=== PATIENT | female | born 1940 | race Caucasian/White ===

== ENCOUNTER 2020-05-09 22:53 | Inpatient (IN) | payer MEDICARE ==
[2020-05-09 23:22] LABS: Hemoglobin 15.3 g/dL (12.0-16.0); Mean Corpuscular HGB CONC 33.7 g/dL (32.0-36.0); Mean Corpuscular Hemoglobin 29.9 pg (27.0-31.0); Mean Corpuscular Volume 88.8 fL (78.0-98.0); Mean Platelet Volume 8.5 fL (7.4-10.4); Platelet Count 256 thou/uL (130-400); RBC Distribution Width 12.7 % (11.5-14.5); Red Blood Cell (RBC) Count 5.12 mill/uL (4.20-5.40); White Blood Cell (WBC) Count 8.5 thou/uL (4.8-10.8)
--- NOTE | 2020-05-09 23:29 | RAD ---
XR Chest 1 View Portable HISTORY: Syncope COMPARISON: 01/15/2016 FINDINGS: The heart size is normal. The aorta is tortuous. The lungs are well expanded without focal areas of consolidation, pneumothorax or pleural effusions. IMPRESSION: No radiographic evidence of acute cardiopulmonary process.
--- NOTE | 2020-05-09 23:31 | CT ---
CT BRAIN WITHOUT CONTRAST: HISTORY:Syncope COMPARISON:None FINDINGS: There are foci of decreased attenuation in the periventricular white matter, consistent with chronic small vessel ischemic disease. There are changes of cortical atrophy. No evidence of acute infarct, hemorrhage, midline shift or abnormal extra-axial fluid collections is seen. The ventricular size is appropriate and the basilar cisterns are patent. The bony calvarium is intact. The visualized paranasal sinuses and mastoid air cells are well aerated. IMPRESSION: No CT evidence of acute intracranial process.
[2020-05-09 23:39] LABS: Band 4 % (5-11); Eosinophils 5 % (0-10); Lymphocytes 28 % (21-51); MDiff Complete? YES; Monocytes 6 % (0-10); Neutrophil 41 % (42-75); Platelet Morphology Comment Appears Adequate; Polychromasia SLIGHT = 2-3 cells (100X) (0-2/hpf); Reactive Lymphocytes 16 % (0-10)
[2020-05-09 23:49] LABS: ALT (SGPT) 76 U/L (8-55); AST (SGOT) 59 U/L (5-34); Albumin 3.7 g/dL (3.4-4.8); Alcohol Less than 10 mg/dL (Less than 10); Alkaline Phosphatase 104 U/L (40-110); Anion Gap 19 mmol/L (10-20); BUN (Urea Nitrogen) 20 mg/dL (9.8-20.1); Bilirubin, Total 0.6 mg/dL (0.2-1.2); Calc. Creatinine Clearance 0 mL/min (70-130); Calcium 9.3 mg/dL (7.8-10.44); Carbon Dioxide 27 mmol/L (23-31); Chloride 91 mmol/L (98-107); Globulin 3.3 g/dL (2.4-3.5); Glucose 129 mg/dL (83-110); Sodium 134 mmol/L (136-145)
[2020-05-09] MEDS ORDERED: Aspirin 325 MG TAB ONE (23:59)
[2020-05-09] MEDS ORDERED: Potassium Chloride 20 MEQ TAB ONE (23:59)
[2020-05-09] MEDS ORDERED: hydrALAZINE 20 MG/ML VIAL ONE (23:59)
[2020-05-10] MEDS ORDERED: Aspirin Chewable 81 MG TAB ONE (00:14)
[2020-05-10] MEDS ORDERED: Metoprolol Tartrate 5 MG/5 ML VIAL ONE (00:37)
[2020-05-10 02:23] VITALS: BMI 26.6
--- NOTE | 2020-05-10 02:56 | PDOC.HHP ---
Hospitalist HPI - History of Present Illness Syncope History of Present Illness: This is a 79-year-old female patient with a history of cholecystitis who presents with a fainting spell earlier today. She was brought in by her daughter. Patient's daughter notes that earlier today the patient was trying to brush her teeth while she was standing behind her. After a while she noticed that she becomes unresponsive with his eyes rolled upwards and general stiffening of her whole body including clawlike posturing of her hands. She did not fall to the ground due to support from her daughter. She activated EMS. Incident lasted for about 2 minutes for which the patient has no memory. Daughter notes that patient had fallen down a couple of weeks ago before this event in an apparent syncopal event. She also notes significant sundowning with confusion and hallucination in the early evenings. She also has issues with memory however no formal diagnosis of dementia has been made. On arrival patient was noted to be feeling a bit confused. Blood pressure was 177/103, respiratory rate 18, pulse 84, saturating 94 on room air. CBC was generally unremarkable, she had mild hyponatremia of 134, potassium of 3.0, creatinine 1.37 with no baseline on file troponin 0 0.073. AST slightly elevated at [address] scan of the head revealed no acute intracranial events chest x-ray also showed no acute cardiopulmonary processes. She was started on Lopressor for blood pressure, aspirin, potassium chloride, hydralazine and also received a liter of normal saline. Hospitalist team was consulted to admit. Hospitalist ROS - Review of Systems Constitutional: denies: fever, chills, sweats, weakness Respiratory: denies: cough, shortness of breath, hemoptysis, SOB with excertion Cardiovascular: denies: chest pain, palpitations, paroxysmal noc. dyspnea Genitourinary: denies: dysuria, frequency, incontinence Musculoskeletal: denies: neck pain, shoulder pain, arm pain Neurological: denies: weakness, numbness, incoordination, change in speech All other systems reviewed; all pertinent +/- noted in HPI/Subj - Medication Medications: Medications: Can refer to ambulatory list. Allergies: No known drug allergies Hospitalist History - Past Medical History Other Medical History: Cholecystitis - Past Surgical History Other Surgical History: Neck surgery, cholecystectomy - Family History Family History: reports: no pertinent history - Social History Smoking Status: Current every day smoker Alcohol: reports: Occassional Living Situation: With Family Activity level: uses cane/walker - Exam General Appearance: awake alert Eye: PERRL, anicteric sclera ENT: normocephalic atraumatic Neck: supple, symmetric, no JVD Heart: RRR, no murmur, no gallops, no rubs, normal peripheral pulses Respiratory: CTAB, no wheezes, no rales, no ronchi, normal chest expansion Gastrointestinal: soft, non-tender, non-distended, normal bowel sounds Extremities: no cyanosis, no clubbing, no edema Neurological: cranial nerve grossly intact, no focal deficits Psychiatric: normal affect, A&O x 3 Hospitalist Results - Labs Result Diagrams: 05/10/20 04:20 05/10/20 04:20 Lab results: WBC 8.5 thou/uL (4.8-10.8) 05/09/20 23:13 Hgb 15.3 g/dL (12.0-16.0) 05/09/20 23:13 Hct 45.5 % (36.0-47.0) 05/09/20 23:13 MCV 88.8 fL (78.0-98.0) 05/09/20 23:13 Plt Count 256 thou/uL (130-400) 05/09/20 23:13 Band Neuts % (Manual) 4 % (5-11) L 05/09/20 23:13 Sodium 134 mmol/L (136-145) L 05/09/20 23:13 Potassium 3.0 mmol/L (3.5-5.1) L 05/09/20 23:13 Chloride 91 mmol/L (98-107) L 05/09/20 23:13 Carbon Dioxide 27 mmol/L (23-31) 05/09/20 23:13 BUN 20 mg/dL (9.8-20.1) 05/09/20 23:13 Creatinine 1.37 mg/dL (0.6-1.1) H 05/09/20 23:13 Glucose 129 mg/dL (83-110) H 05/09/20 23:13 Calcium 9.3 mg/dL (7.8-10.44) 05/09/20 23:13 Total Bilirubin 0.6 mg/dL (0.2-1.2) 05/09/20 23:13 AST 59 U/L (5-34) H 05/09/20 23:13 ALT 76 U/L (8-55) H 05/09/20 23:13 Alkaline Phosphatase 104 U/L (40-110) 05/09/20 23:13 CK-MB (CK-2) 2.0 ng/mL (0-6.6) 05/09/20 23:13 Troponin I 0.073 ng/mL (< 0.028) H 05/09/20 23:13 Serum Total Protein 7.0 g/dL (6.0-8.3) 05/09/20 23:13 Albumin 3.7 g/dL (3.4-4.8) 05/09/20 23:13 Hospitalist H&P A/P - Plan Plan: There is a 79-year-old male patient with no significant past medical history presenting with possible syncope seizure activity. Syncope We will admit monitor on telemetry. Fall precautions Orthostatic vitals Echocardiogram in a.m. PT eval in the morning. Hypertensive emergency Systolic blood pressure above 200 slightly elevated troponin BP improved with as needed metoprolol and hydralazine We will start amlodipine Medications Consider nicardipine drip if BP remains sustained. Elevated troponin Initial troponin 0 0.073 Received aspirin We will trend Consider cardiology consult if trends. Possible seizure attack. We will monitorseizure precautions Possible EEG in a.m. Neuro consult in a.m. Hypokalemia Potassium 3.0replace Check magnesium in a.m. Dementia Neuro evaluation CKD Creatinine 1.37 Monitor BMP VT prophylaxisLovenox CODE STATUSfull code
[2020-05-10] MEDS ORDERED: hydrALAZINE 20 MG/ML VIAL SLOW IVP PRN (03:04)
[2020-05-10] MEDS ORDERED: Labetalol HCl 100 MG/20 ML VIAL SLOW IVP PRN (03:25)
[2020-05-10] MEDS ORDERED: Amlodipine 10 MG TAB PO SCH (03:30)
[2020-05-10] MEDS ORDERED: cloNIDine 0.1 MG TAB PO SCH ×2 (03:45→09:00)
[2020-05-10 04:36] LABS: #Basophils 0.1 thou/uL (0.0-0.2); #Eosinphils 0.1 thou/uL (0.0-0.7); #Lymphocytes 3.4 thou/uL (1.20-3.40); #Monocytes 0.7 thou/uL (0.11-0.59); %Basophils 1.1 % (0.0-1.0); %Eosinophils 1.1 % (0.0-10.0); %Lymphocytes 41.3 % (21.0-51.0); %Neutrophils 48.5 % (42.0-75.0); Mean Corpuscular HGB CONC 34.5 g/dL (32.0-36.0); Mean Corpuscular Hemoglobin 29.9 pg (27.0-31.0); Mean Corpuscular Volume 86.7 fL (78.0-98.0); Mean Platelet Volume 8.2 fL (7.4-10.4); Platelet Count 261 thou/uL (130-400); RBC Distribution Width 12.5 % (11.5-14.5); Red Blood Cell (RBC) Count 4.67 mill/uL (4.20-5.40); White Blood Cell (WBC) Count 8.3 thou/uL (4.8-10.8)
[2020-05-10] MEDS ORDERED: Electrolyte Replacement Protocol 1 EACH FS PRN (05:00)
[2020-05-10 05:02] LABS: Anion Gap 15 mmol/L (10-20); BUN (Urea Nitrogen) 16 mg/dL (9.8-20.1); Calc. Creatinine Clearance 44 mL/min (70-130); Calcium 8.9 mg/dL (7.8-10.44); Carbon Dioxide 28 mmol/L (23-31); Chloride 98 mmol/L (98-107); Glucose 103 mg/dL (83-110); Magnesium 1.6 mg/dL (1.6-2.6); Sodium 138 mmol/L (136-145)
[2020-05-10 05:06] LABS: Potassium 2.9 mmol/L (3.5-5.1)
[2020-05-10 05:11] LABS: Troponin I 0.101 ng/mL (< 0.028)
[2020-05-10] MEDS: Potassium Chloride 20 MEQ TAB PO SCH ×2 (05:12→09:45)
[2020-05-10] MEDS ORDERED: Magnesium 2 GM/50 ML 2 GM in Premix Bag 1 BAG IVPB SCH (05:15)
[2020-05-10] MEDS ORDERED: Potassium Chloride 20 MEQ TAB PO SCH ×2 (05:15→17:00)
[2020-05-10 08:13] LABS: Troponin I 0.086 ng/mL (< 0.028)
[2020-05-10] MEDS: Amlodipine 10 MG TAB PO SCH (08:49)
[2020-05-10] MEDS: Enoxaparin Sodium 40 MG/0.4 ML SYRINGE SC SCH (08:49)
[2020-05-10 11:26] LABS: Anion Gap 16 mmol/L (10-20); BUN (Urea Nitrogen) 16 mg/dL (9.8-20.1); Calc. Creatinine Clearance 45 mL/min (70-130); Carbon Dioxide 25 mmol/L (23-31); Chloride 101 mmol/L (98-107); Glucose 106 mg/dL (83-110); Magnesium 2.5 mg/dL (1.6-2.6); Potassium 3.3 mmol/L (3.5-5.1); Sodium 139 mmol/L (136-145)
--- NOTE | 2020-05-10 15:25 | CON ---
DATE OF CONSULTATION: 05/10/2020 CONSULTING PHYSICIAN: Hospitalist Service. IMPRESSION: Probable seizures secondary to underlying dementia and it appears to be vascular in origin. PLAN: 1. I would suggest Lamictal 100 mg per day. 2. Office followup. HISTORY OF PRESENT ILLNESS: Ms. Ulrich is a 79-year-old woman with past history of dementia and hypertension. She was witnessed by her daughter to suddenly stiffen up while she was standing at the sink. Her eyes apparently rolled upward. She was unconscious for what witness reported to be 2 minutes based on the available information in the chart, and reportedly this is not the first time this has happened. She was brought into the emergency room for evaluation. Her lab work was in normal range. Her CT showed [id number] amount of subcortical white matter ischemic changes that appeared chronic. She has not had any further episodes since admission. There is no family in the room at this point to give me any further information. The patient is clearly unreliable in regard to her history. PAST MEDICAL HISTORY: As listed above. ALLERGIES: NONE. SOCIAL HISTORY: No tobacco or alcohol use is known. FAMILY HISTORY: Not obtainable. REVIEW OF SYSTEMS: 10 system review of systems is otherwise negative. PHYSICAL EXAMINATION: GENERAL: She is a well-nourished, elderly lady, sitting in bed, in no acute distress. VITAL SIGNS: Have been stable. She is afebrile. HEENT: Pupils are equal and reactive. Conjunctivae clear. Oropharynx clear. NECK: Supple. No lymphadenopathy. ABDOMEN: Soft and nontender. SKIN: Clear. EXTREMITIES: No cyanosis or edema. NEUROLOGIC: She was alert and cooperative. She was only oriented to person. Her speech is fluent and clear. There was no facial asymmetry noted. She had good carpet repairer strength bilaterally. Vgmalc-fj-[id number] movements were symmetric and without dysmetria. Sensation was intact to touch. Gait was not tested. No abnormal movements were seen. LABORATORY DATA AND IMAGING: Reviewed. SUMMARY: This is an elderly lady with dementia who had what was described as a possible seizure-like episode. Would suggest a low dose of Lamictal to avoid cognitive impairment from anticonvulsants. I would be happy to follow up with her as an outpatient. Job ID: [id number]
--- NOTE | 2020-05-10 17:29 | PDOC.BPN ---
- Brief Progress Note Encounter Date: 05/10/20 Encounter Time: 11:00 F/u: s/p fall, seizure The patient denies new complaints. She has no dizziness or lightheadedness. She denies chest pain or palpitations. She denies history of seizures previously The patient states the month is April, year is 1991. She states the president is [place] Physical exam: General : Patient is sitting up in bed, alert, oriented to person only CVS: RRR, no murmurs, rubs, gallops Lungs; CTAB Abdomen:+BS, soft, nontender, nondistended Extremities: no edema This is a 79 year old female who presented with a fall with question of possible seizure. She was also found to have a blood pressure of over 200 Hypertensive Urgency - patient presented with a BP of 190-200. BP improved to 140 with clonidine and amlodipine. - continue amlodipine S/p fall -CT brain and chest X ray were normal. Orthostatics positive. Will discontinue clonidine and continue amlodipine for now . ECHO unremarkable except severe LVH - PT has evaluated the patient and recommended rehab. Will place case management consult Possible seizure - neurology was consulted. Lamictal will be started Dementia? - not on any home medications. I am unable to get a hold of the family Dispo: will place case management consult for rehab
[2020-05-10 18:06] LABS: SARS-CoV-2 PCR by NAA Not Detected (NotDetected)
[2020-05-11] MEDS ORDERED: Potassium Chloride 20 MEQ TAB PO SCH (07:45)
[2020-05-11] MEDS: lamoTRIgine 100 MG TAB PO SCH (08:18)
[2020-05-11] MEDS: Enoxaparin Sodium 40 MG/0.4 ML SYRINGE SC SCH (08:19)
[2020-05-11] MEDS: Amlodipine 10 MG TAB PO SCH (08:19)
[2020-05-11 11:34] LABS: Potassium 3.9 mmol/L (3.5-5.1)
--- NOTE | 2020-05-11 16:48 | PDOC.HOSPP ---
- Subjective Encounter Date: 05/11/20 Encounter Time: 08:00 Subjective: F/u: syncope The patient has had no seizures overnight. She dneies chest pain or palpitations. She is weak. She uses a walker at baseline. She is interested in going to rehab Dementia - the patient states it is 2001. She is not oriented to place or month - Objective Vital Signs & Weight: Vital Signs (12 hours) Temp Pulse Resp BP BP BP BP 05/11/20 16:08 98.5 F 83 16 168/77 H 05/11/20 11:30 97.6 F 86 16 161/74 H 05/11/20 08:19 73 05/11/20 08:12 98.2 F 75 18 178/83 H 144/67 H 187/89 H Pulse Ox 05/11/20 16:08 94 L 05/11/20 11:30 95 05/11/20 08:19 05/11/20 08:12 95 Weight Weight 145 lb 8.081 oz I&O: 05/10/20 05/11/20 05/12/20 06:59 06:59 06:59 Intake Total 350 1200 Output Total 800 1100 Balance -450 100 Result Diagrams: 05/10/20 04:20 05/11/20 10:43 Additional Labs: Accuchecks 05/11/20 05/10/20 05/10/20 10:31 20:37 16:50 POC Glucose 97 107 H 107 H Hospitalist ROS - Review of Systems Constitutional: denies: fever, chills - Medication Medications: Active Medications Generic Name Dose Route Start Last Admin Trade Name Pratik PRN Reason Stop Dose Admin Amlodipine Besylate 10 mg 05/10/20 09:00 05/11/20 08:19 Amlodipine 10 Mg Tab PO 10 mg DAILY REBEKA Administration Enoxaparin Sodium 40 mg 05/10/20 09:00 05/11/20 08:19 Enoxaparin Sodium 40 Mg/0.4 Ml Syringe SC 40 mg 0900 REBEKA Administration Lamotrigine 100 mg 05/11/20 09:00 05/11/20 08:18 Lamotrigine 100 Mg Tab PO 100 mg DAILY REBEKA Administration Sodium Chloride 10 ml 05/11/20 09:00 05/11/20 08:19 Flush - Normal Saline 10 Ml Syringe IVF 10 ml Q12HR REBEKA Administration - Exam General Appearance: NAD, awake alert Eye: PERRL, anicteric sclera ENT: normocephalic atraumatic, no oropharyngeal lesions Neck: no JVD Heart: RRR, no murmur, no gallops, no rubs Respiratory: CTAB, no wheezes, no rales, no ronchi Gastrointestinal: soft, non-tender, non-distended, normal bowel sounds Extremities: no cyanosis, no clubbing, no edema Skin: normal turgor, no lesions, no rashes Neurological: cranial nerve grossly intact, normal sensation to touch, no weakness Musculoskeletal: normal tone, normal strength, no muscle wasting Hosp A/P - Plan This is a 79 year old female who presented with a fall with question of possible seizure. She was also found to have a blood pressure of over 200 Hypertensive Urgency - patient presented with a BP of 190-200. BP improved to 140 with clonidine and amlodipine. - continue amlodipine 10 mg. Orthostatics still positive but unclear if symptomatic from it or not. Will add lisinopril 5 mg daily S/p fall -CT brain and chest X ray were normal. Orthostatics positive. Will discontinue clonidine and continue amlodipine for now . ECHO unremarkable except severe LVH - PT has evaluated the patient and recommended rehab. Case management was consulted Possible seizure - neurology was consulted. Lamictal wwas be started Dementia? - not on any home medications.
[2020-05-11] MEDS ORDERED: Lisinopril 5 MG TAB PO SCH (18:00)
[2020-05-12] MEDS: lamoTRIgine 100 MG TAB PO SCH (08:52)
[2020-05-12] MEDS: Lisinopril 5 MG TAB PO SCH (08:52)
[2020-05-12] MEDS: Amlodipine 10 MG TAB PO SCH (08:54)
[2020-05-12] MEDS: Enoxaparin Sodium 40 MG/0.4 ML SYRINGE SC SCH (08:54)
--- NOTE | 2020-05-12 17:07 | PDOC.HOSPP ---
- Subjective Encounter Date: 05/12/20 Encounter Time: 10:00 Subjective: F/u: seizure The patient has had no seizures overnight. The patient is doing well with no complaints. She denies headaches, dizziness, weakness or numbness. She is still confused, thinks that it is 1990 - Objective Vital Signs & Weight: Vital Signs (12 hours) Temp Pulse Pulse Pulse Resp BP BP 05/12/20 14:07 73 72 129/74 05/12/20 08:54 71 122/60 05/12/20 08:52 71 122/60 05/12/20 08:00 05/12/20 07:53 97.2 F L 71 18 BP BP BP Pulse Ox 05/12/20 14:07 118/56 L 05/12/20 08:54 05/12/20 08:52 05/12/20 08:00 95 05/12/20 07:53 99/54 L 142/67 H 95 Weight Weight 145 lb 8.081 oz I&O: 05/11/20 05/12/20 05/13/20 06:59 06:59 06:59 Intake Total 1200 Output Total 1100 550 Balance 100 -550 Result Diagrams: 05/10/20 04:20 05/11/20 10:43 Additional Labs: Accuchecks 05/11/20 05/11/20 20:50 16:49 POC Glucose 136 H 116 H Hospitalist ROS - Review of Systems Constitutional: denies: fever, chills - Medication Medications: Active Medications Generic Name Dose Route Start Last Admin Trade Name Freq PRN Reason Stop Dose Admin Amlodipine Besylate 10 mg 05/10/20 09:00 05/12/20 08:54 Amlodipine 10 Mg Tab PO 10 mg DAILY REBEKA Administration Enoxaparin Sodium 40 mg 05/10/20 09:00 05/12/20 08:54 Enoxaparin Sodium 40 Mg/0.4 Ml Syringe SC 40 mg 0900 REBEKA Administration Lamotrigine 100 mg 05/11/20 09:00 05/12/20 08:52 Lamotrigine 100 Mg Tab PO 100 mg DAILY REBEKA Administration Lisinopril 5 mg 05/12/20 09:00 05/12/20 08:52 Lisinopril 5 Mg Tab PO 5 mg DAILY REBEKA Administration Sodium Chloride 10 ml 05/11/20 09:00 05/12/20 08:54 Flush - Normal Saline 10 Ml Syringe IVF 10 ml Q12HR REBEKA Administration - Exam General Appearance: NAD, awake alert Eye: PERRL, anicteric sclera ENT: normocephalic atraumatic, no oropharyngeal lesions Neck: no JVD Heart: RRR, no murmur, no gallops, no rubs Respiratory: CTAB, no wheezes, no rales, no ronchi Gastrointestinal: soft, non-tender, non-distended, normal bowel sounds Extremities: no cyanosis, no clubbing, no edema Skin: normal turgor, no lesions, no rashes Hosp A/P - Plan This is a 79 year old female who presented with a fall with question of possible seizure. She was also found to have a blood pressure of over 200 Hypertensive Urgency - controlled - patient presented with a BP of 190-200. BP improved to 140 with clonidine and amlodipine. - BP controlled 90 -100. Continue amlodipine and lisinopril S/p fall -CT brain and chest X ray were normal. Orthostatics positive. Will discontinue clonidine and continue amlodipine for now . ECHO unremarkable except severe LVH - PT has evaluated the patient and recommended rehab. Case management was consulted Possible seizure - neurology was consulted. Lamictal was started Dementia? - not on any home medications.
[2020-05-13] MEDS: Amlodipine 10 MG TAB PO SCH (08:12)
[2020-05-13] MEDS: Lisinopril 5 MG TAB PO SCH (08:12)
[2020-05-13] MEDS: lamoTRIgine 100 MG TAB PO SCH (08:13)
[2020-05-13] MEDS: Enoxaparin Sodium 40 MG/0.4 ML SYRINGE SC SCH (08:13)
--- NOTE | 2020-05-13 15:40 | PDOC.HOSPP ---
- Subjective Encounter Date: 05/13/20 Encounter Time: 09:00 Subjective: F/u: fall, orthostatic hypotension The patient worked with physical therapy. She was orthostatic while walking and dropped to 88 systolic. SHe had symptomatic dizziness with this. Yesterday per PT she was orthostatic but asymptomatic SHe is still pending a bed The patient has no complaints of dizziness, lightheadedness or chest pain Dementia - the patient states the month is April and the year is 1991 - Objective Vital Signs & Weight: Vital Signs (12 hours) Temp Pulse Pulse Pulse Pulse Resp BP 05/13/20 15:27 97.6 F 70 18 05/13/20 11:30 97.6 F 65 18 05/13/20 09:35 81 79 75 88/49 L 05/13/20 08:22 05/13/20 07:09 05/13/20 07:04 97.6 F 60 18 05/13/20 04:00 97.9 F 64 14 BP BP BP BP BP BP Pulse Ox 05/13/20 15:27 130/60 100 05/13/20 11:30 108/55 L 99 05/13/20 09:35 116/56 L 96/54 L 05/13/20 08:22 126/58 L 95/55 L 142/68 H 05/13/20 07:09 129/63 101/60 05/13/20 07:04 142/68 H 94 L 05/13/20 04:00 135/68 96 Weight Weight 145 lb 15.136 oz I&O: 05/12/20 05/13/20 05/14/20 06:59 06:59 06:59 Intake Total 620 Output Total 550 Balance -550 620 Result Diagrams: 05/10/20 04:20 05/11/20 10:43 Hospitalist ROS - Review of Systems Constitutional: denies: fever, chills - Medication Medications: Active Medications Generic Name Dose Route Start Last Admin Trade Name Freq PRN Reason Stop Dose Admin Enoxaparin Sodium 40 mg 05/10/20 09:00 05/13/20 08:13 Enoxaparin Sodium 40 Mg/0.4 Ml Syringe SC 40 mg 0900 REBEKA Administration Lamotrigine 100 mg 05/11/20 09:00 05/13/20 08:13 Lamotrigine 100 Mg Tab PO 100 mg DAILY REBEKA Administration Lisinopril 5 mg 05/12/20 09:00 05/13/20 08:12 Lisinopril 5 Mg Tab PO 5 mg DAILY REBEKA Administration Sodium Chloride 10 ml 05/11/20 09:00 05/13/20 08:13 Flush - Normal Saline 10 Ml Syringe IVF 10 ml Q12HR REBEKA Administration - Exam General Appearance: NAD, awake alert Eye: PERRL, anicteric sclera ENT: normocephalic atraumatic Neck: no JVD Heart: RRR, no murmur, no gallops, no rubs, normal peripheral pulses Respiratory: CTAB, no wheezes, no rales, no ronchi Gastrointestinal: soft, non-tender, non-distended, normal bowel sounds Extremities: no cyanosis, no clubbing, no edema Skin: normal turgor, no lesions, no rashes Neurological: cranial nerve grossly intact, normal sensation to touch, no focal deficits, no new deficit Hosp A/P - Plan This is a 79 year old female who presented with a fall with question of possible seizure. She was also found to have a blood pressure of over 200 #Hypertensive Urgency - controlled #Orthostatic hypotension - patient presented with a BP of 190-200. BP improved to 140 with clonidine and amlodipine. Clonidine was discontinued -the patient was started on amlodipine and lisinopril due to BP in the 180's. BP has now dropped to 88-90, so will discontinue amlodipine and continue lisinopril 5 mg daily S/p fall -CT brain and chest X ray were normal. Orthostatics positive. Will discontinue clonidine and continue amlodipine for now . ECHO unremarkable except severe LVH - PT has evaluated the patient and recommended rehab. Case management is consulted, currently still pendin [place] bed Possible seizure - neurology was consulted. Lamictal was started Dementia? - not on any home medications.
[2020-05-14 04:13] LABS: Hemoglobin 12.4 g/dL (12.0-16.0); Mean Corpuscular HGB CONC 33.3 g/dL (32.0-36.0); Mean Corpuscular Hemoglobin 29.3 pg (27.0-31.0); Mean Corpuscular Volume 87.8 fL (78.0-98.0); Mean Platelet Volume 8.2 fL (7.4-10.4); Platelet Count 253 thou/uL (130-400); RBC Distribution Width 12.8 % (11.5-14.5); Red Blood Cell (RBC) Count 4.22 mill/uL (4.20-5.40); White Blood Cell (WBC) Count 7.3 thou/uL (4.8-10.8)
[2020-05-14 04:34] LABS: Anion Gap 12 mmol/L (10-20); BUN (Urea Nitrogen) 20 mg/dL (9.8-20.1); Calc. Creatinine Clearance 40 mL/min (70-130); Calcium 9.2 mg/dL (7.8-10.44); Carbon Dioxide 29 mmol/L (23-31); Chloride 97 mmol/L (98-107); Glucose 97 mg/dL (83-110); Potassium 3.1 mmol/L (3.5-5.1); Sodium 135 mmol/L (136-145)
[2020-05-14] MEDS ORDERED: Potassium Chloride 20 MEQ TAB PO SCH (07:00)
[2020-05-14] MEDS ORDERED: Amlodipine 5 MG TAB PO SCH (09:00)
[2020-05-14] MEDS: lamoTRIgine 100 MG TAB PO SCH (10:15)
[2020-05-14] MEDS: Enoxaparin Sodium 40 MG/0.4 ML SYRINGE SC SCH (10:15)
--- NOTE | 2020-05-14 15:24 | PDOC.DS.DS ---
Provider - Provider Date of Admission: 05/10/20 17:32 Date of Discharge: 05/14/20 Admitting Provider: Charanjit Cummings MD Primary Care Physician: Anya Dinh DO Course - Hospital Course Hospital Course: Discharge Diagnoses: 1. Hypertensive Urgency 2. Orthostatic Hypotension 3. Seizure 4. S/p fall 5. Seizure 6. Dementia Brief HPI: This is a 79 year old male with past medical history of cholecystitis who presented after a fainting spell. Her eyes rolled upwards and she became unresponsive and her whole body stiffened. She has fallen down before. She also has had poor memory and hallucinations at [facility]. When the patient presented to the ER, her blood pressure was 177/103. CBC was unremarkable, sodium was 134, potassium 3.[address] head and chest Xray was normal. The patient was admitted for syncope workup. Hospital Course: Syncope secondary to seizure: neurology was consulted and felt the patient may have had a seizure. She was started on lamictal. No EEG was done. The patient had no further seizures. Orthostatic hypotension/Hypertensive Urgency: the patient had a blood pressure of 221/107 initially. She was started on amlodipine and clonidine. The patient had rapid improvement in her blood pressure to 130 so clonidine was discontinued and she was transitioned to amlodipine 10 mg and lisinopril. The patient did experience some orthostatic hypotension, with a blood pressure of 88 systolic while standing on 05/13. Her creatinine also increased to 1.23, so lisinopril was discontinued. Amlodipine was reduced to 2.5 mg daily on the day of discharge. Her blood pressure was 141/61 at the time of discharge. Physical deconditioning: the patient was seen by physical therapy and thought to be very weak. She will be discharged to rehab. Possible dementia: the patient has thought the year was 1991 multiple days in a row. Today she thought she was in [facility] [place]. Consider outpatient workup of dementia. Pertinent Studies: Chest Xray: no acute disease CT brain: no acute disease Resuscitation Status: 05/10/20 01:54 Resuscitation Status Routine Resuscitation Status: FULL: Full Resuscitation - Labs Lab Results: 05/14/20 04:03 05/14/20 04:03 Abnormal Lab Results - Last 48 hrs 05/14/20 04:03: Sodium 135 L, Potassium 3.1 L, Chloride 97 L, Creatinine 1.23 H - Physical Exam Vitals: Vital Signs (12 hours) Temp Pulse Pulse Pulse Resp BP BP 05/14/20 11:58 97.6 F 75 16 05/14/20 10:12 76 05/14/20 09:23 78 73 86/54 L 156/73 H 05/14/20 07:30 98.1 F 69 18 05/14/20 04:00 98.5 F 67 16 BP BP BP Pulse Ox 05/14/20 11:58 141/61 H 96 05/14/20 10:12 150/66 H 05/14/20 09:23 179/84 H 05/14/20 07:30 161/74 H 95 05/14/20 04:00 140/72 93 L Weight Weight 146 lb 2.664 oz Physical Exam: The patient was seen and examined on the day of discharge. General: patient is alert, awake, oriented times three CV: RRR, no murmurs, rubs, gallops Lungs: CTAB Abdomen: extremities Neuro: CN II - XII intact. 5/5 strength in upper and lower extremities. Sensation in lower extremities. Problem - Time spent with Patient (mins): 35 Plan - Discharge Medications Prescriptions: lamoTRIgine [LaMICtal] 100 mg PO DAILY #30 tab Amlodipine [Norvasc] 5 mg PO DAILY #30 tab Home Medications: Medication Instructions Recorded Confirmed Type Amlodipine [Norvasc] 5 mg PO DAILY #30 tab 05/14/20 Rx lamoTRIgine [LaMICtal] 100 mg PO DAILY #30 tab 05/14/20 Rx Allergies: No Known Allergies Allergy (Verified 05/10/20 02:31) - Discharge Instructions Discharge Instructions:: FOCUS: Transition from Acute Care after Discharge GOAL: Successful transition to care in the community YOUR TASKS: (1) review all information outlined in your discharge packet (2) follow any instructions outlined in your discharge packet (3) contact your primary care provider if you have questions or need additional assistance See patient discharge instruction sheet for detailed teaching. Patient verbalizes understanding of medications and is able to verbalize follow-up care. See Discharge Plan for additional discharge information. Patient secured in private vehicle prior to departure. Activity:: Activity as Tolerated Nourishment:: Heart Healthy Diet - Follow up Plan [facility] [Other] (Inpatient rehab admit.) Anya Dinh DO [Primary Care Provider] - (SCHEDULE FOLLOW UP APPT WITH DR DINH WHEN YOU ARE DISCHARGED FROM REHAB) Kyung Brooks MD [Active] - (Accepting pcp at the [facility] o f joey Salgado) Disposition: HOME Quality - Care Measures CORE MEASURES:: N/A
[2020-05-14 15:46] VITALS: BP 164/75; TEMP 98.8
--- NOTE | 2020-05-30 19:08 | EKG ---
Test Reason : Blood Pressure : / mmHG Vent. Rate : 084 BPM Atrial Rate : 084 BPM P-R Int : 136 ms QRS Dur : 130 ms QT Int : 434 ms P-R-T Axes : 029 -18 005 degrees QTc Int : 512 ms Normal sinus rhythm Possible Left atrial enlargement Right bundle branch block T wave abnormality, consider lateral ischemia Abnormal ECG Confirmed by DELILAH PORTER ([id number]), news assignment editor ALYSSA TOSCANO ([id number]) on 05/30/2020 7:08:03 PM Referred By: Confirmed By:DELILAH PORTER
== END 2020-05-14 16:50 | DRG 101 ==
LOC: ERS 22:53 → 2NO 05-10 00:33 → OBSVTOIN 05-10 17:32
PROVIDERS: ADMIT Student in an Organized Health Care Education/Training Program; ATTEND Internal Medicine
DX: G40.89 Other seizures (principal); E87.1 Hypo-osmolality and hyponatremia; I16.1 Hypertensive emergency; Z20.822 Contact with and (suspected) exposure to COVID-19; E87.6 Hypokalemia; F03.90 Unspecified dementia, unspecified severity, without behavioral disturbance, psychotic disturbance, mood disturbance, and anxiety; N18.9 Chronic kidney disease, unspecified; I12.9 Hypertensive chronic kidney disease with stage 1 through stage 4 chronic kidney disease, or unspecified chronic kidney disease; I16.0 Hypertensive urgency; I95.1 Orthostatic hypotension; Z90.49 Acquired absence of other specified parts of digestive tract; Z90.710 Acquired absence of both cervix and uterus; Z88.0 Allergy status to penicillin; Z79.899 Other long term (current) drug therapy; Z79.82 Long term (current) use of aspirin
CPT/HCPCS: 36415; 36416; 70450; 71045; 80048; 80053; 80307; 82553; 83735; 84132; 84484; 85025; 85027; 87635; 93005; 93306; 96372; 96374; 96375; G0378; J0360; J1650; J3475; U0003; U0005